=== PATIENT | male | born 1960 | race Caucasian/White ===

== ENCOUNTER 2019-05-24 09:09 | Day surgery (SDC) | payer MEDICAID, SELFPAY ==
--- NOTE | 2019-05-24 06:49 | W.COLOREPORT ---
Date of service: 05/24/19 Time of Service: 10:25 Colonoscopy Report Date of procedure: 05/24/19 Pre-op diagnosis general: Colon Cancer Screening Post-op diagnosis procedure note: other (polyps x 5) Procedure: Colonoscopy with polypectomy Surgeon: Rosmery George Anesthesia proc note operative: other (General/ ASA 2/ Shauna Hernandez CRNA ) Estimated blood loss (mL): 5 Pathology: other (Ascending colon polyps x3, descending polyps x2) Complications: None Disposition: other (General/ ASA /) Indications: 58 y/o male with history of HTN and sleep apnea presents for his first colonoscopy screening pre-op. He denies a family history of colon cancer, however reports that his father had a portion of his colon removed. He denies any changes in bowel habits including bloody or black tarry stools, abdominal pain, diarrhea or constipation. He has been working with an herbalist and has been recently making changes in his diet eliminating several types of food to include: red meat, dairy, shellfish, fruits and juices. He has been also mainly drinking water along with a an herbal tea which was made by his herbalist. He denies constitutional symptoms. Risks, benefits and complications have been reviewed. Complications include but are not limited to bleeding, pain, perforation, missed small lesion/polyp, sore throat, aspiration and adverse reaction to the medications. Questions were entertained and answered to their satisfaction and they wished to proceed. No guarantees were given or implied. Prep: Miralax/Dulcolax Procedure Start Time: 10:25 Procedure End Time: 11:00 Retraction Time: 29 minutes Findings: 3 sessile polyps < 1cm 1 sessile polyp >1 cm 1 pedunculated polyp >1 cm Procedure Description: After informed consent was obtained the patient was taken to the procedure room and placed in a left decubitous position. Monitors were applied and a time out was done. The patients name, date of , procedure, allergies to medications and metal in their body was reviewed. The patient was then sedated. Once sedated and comfortable a rectal exam was done. External exam was normal. Internal exam revealed a normal sphincter tone and no palpable masses. The prostate felt smooth. The scope was then introduced and retro-flexed. No internal hemorrhoids were identified. The scope was then advanced to the cecum without difficulty. The TI and appendiceal orifice were identified. The prep was adequate. The scope was then slowly retracted over 29 minutes back into the rectum. Polyps were removed with cold forceps in the ascending colon x2 and descending colon x1. Polyps were removed with a hot snare in the ascending colon and descending colon. There were right sided diverticula noted. The scope was removed and the patient was woken up and taken back to Same day surgery in stable condition. The patient tolerated the procedure well and there were no immediate complications. Follow up: The patient should follow up in 1-3 years unless they develop changes in bowel habits or other new gastrointestinal complaints.
--- NOTE | 2019-05-24 06:50 | W.PM.DSUDISC ---
Discharge Plan Disposition Patient Disposition: HOME Condition: Good Discharge Details Reason For Visit: SCREENING Attending Provider: Rosmery George Primary Care Provider: Carina Nettles Home Meds and New Rx's Prescriptions: Continued amlodipine 5 mg tablet 5 mg PO DAILY RF: 0 Discontinued polyethylene glycol 3350 17 gram/dose powder 238 g PO ONCE Qty: 238 RF: 0 bisacodyl [Dulcolax (bisacodyl)] 5 mg tablet,delayed release (DR/EC) 5 mg PO ONCE Qty: 4 RF: 0 Discharge Instructions Instructions: Colorectal Polyps (GEN), Diverticulosis (GEN) Additional Instructions: Findings: 5 polyps Divertculosis Follow up: 1-3 years Please call if you develop: fevers >101.5 Nausea or Vomiting Abdominal pain that is not transient DAY SURGERY UNIT POST ENDOSCOPY INSTRUCTIONS 1. Because there will be medication in your system for the next 24 hours, you may feel a little sleepy. Your coordination will be affected. Therefore: a. Do not drive or operate dangerous equipment for 24 hours. b. Do not drink alcohol beverages for 24 hours (not even beer). c. Plan to go home and rest for the day. 2. Generally there are no restrictions on your activity after a day or so has gone by, but you may feel a bit fatigued for a few days. 3 After you arrive home you may have a light meal and return to a normal diet as you can tolerate it without feeling sick to your stomach. 4. After surgery, you may feel pain or discomfort. This should be only transient, but if it persists please contact your doctor. 5. If there are any questions regarding the findings of your procedure, please feel free to contact your doctor. 6. If you are unable to contact your doctor with a problem, contact the hospital at [phone]. 7. Continue all your regular medications unless directed otherwise. I understand the above instructions and have no questions. Signature of Patient or Responsible Adult Escort Date/Time Name of Responsible Adult Escort Signature of Nurse Date/Time Activity:: Activity as Tolerated Diet:: High Fiber diet Discharge Orders Discharge Orders: Discharge Order (Routine); Ordered 05/24/19 Ordered By: Rosmery George DS: Diagnosis Discharge Diagnosis (1) Diverticula of colon: Status: Acute (2) Colorectal polyps: Status: Acute
[2019-05-24 09:24] VITALS: BP 125/94; PULSE 84; RESP 16; TEMP 36; O2SAT 94
[2019-05-24] MEDS: Lactated Ringers 1,000 ML 80 ML IV (09:52)
--- NOTE | 2019-05-24 09:57 | HOME_ITS ---
Home Ventilator Equipment Home care company Reason: Obstructive Sleep Apnea Make: ResMed Model: REMStar Mask type: Nasal mask Mask size: Mode: CPAP Settings: 8.0 Oxygen bleed in (lpm): 0 Condition: Fair Date last checked: 05/24/19 Year of last sleep study: Compliance Daily Comments: Mask needs to be replaced.
--- NOTE | 2019-05-24 10:34 | BOWEL_PTH ---
PATIENT: Nabil Villeda LOC: [facility] U#:[id number] AGE/SX: 58/M ROOM: RE05/24/[address]: Rosmery George MD : 1960 BED: DIS: 05/24/2019 SPEC #: [id number] RECD: 05/24/19 12:40 STATUS: FRANSISCO REQ #: [id number] LÁZARO: 05/24/19 10:[address]: Rosmery George DEPT: Surgical Specimen RECD BY: Lauren Blood ENTERED: 05/24/19 12:44 SP TYPE: Bowel OTHR DR: Carina Hartman Tissues: 1 - BIOPSY BOWEL 2 - BIOPSY BOWEL 3 - BIOPSY BOWEL 4 - BIOPSY BOWEL Procedures: GROSS AND MICRO LEVEL 4 Comments: [id number]
[2019-05-24 11:34] VITALS: BP 123/83; PULSE 68; RESP 20; TEMP 36.2; O2SAT 94
== END 2019-05-24 12:00 | disposition home or self-care (01) ==
LOC: SUR 09:09
PROVIDERS: PCP Nurse Practitioner Family; Visit Provider Surgery
PROC: 0DJD8ZZ Inspection of Lower Intestinal Tract, Via Natural or Artificial Opening Endoscopic (ICD-10-PCS; CPT 45378; principal; 2019-05-24 10:15)
DX: Z12.11 Encounter for screening for malignant neoplasm of colon (principal); D12.2 Benign neoplasm of ascending colon; D12.4 Benign neoplasm of descending colon; K57.30 Diverticulosis of large intestine without perforation or abscess without bleeding
CPT/HCPCS: 45385; 45380; 88305; J2001

== ENCOUNTER 2022-05-01 08:49 | Day surgery (SDC) | payer MEDICAID, SELFPAY ==
--- NOTE | 2022-04-30 19:58 | W.PM.DSUDISC ---
Date of service: 05/01/22 Time of Service: 11:31 Discharge Plan Disposition Patient Disposition: Home Condition: Good Discharge Details Reason For Visit: Colonoscopy Attending Provider: Tesfaye Zarate Primary Care Provider: Carina Hartman Home Meds and New Rx's Prescriptions: Continued amlodipine 5 mg tablet 5 mg PO DAILY Discontinued polyethylene glycol 3350 17 gram/dose powder 238 g PO ONCE Qty: 238 0RF Rx Instructions: take per colonoscopy instructions bisacodyl [Dulcolax (bisacodyl)] 5 mg tablet,delayed release (DR/EC) 5 mg PO ONCE Qty: 4 0RF Rx Instructions: take per colonoscopy instructions Discharge Instructions Instructions: Colorectal Polyps (GEN), Diverticulosis Diet (GEN), Diverticulosis (GEN) Additional Instructions: Nabil, we were able to complete your colonoscopy today without any difficulty. The quality of your preparation was excellent. I did find 1 polyp. I removed this completely. I will be in touch when I have the results of the pathology report. You also had some diverticulosis. We have provided some information here regarding general management of that. 1. If tolerated, consume a soft, low fiber diet for 1-2 days. 2. Do not drive, drink alcohol, operate machinery, make critical decisions, or do activities that require coordination or balance for 24 hours. 3. Because air was put into your colon during the procedure, expelling air from your rectum (passing gas or farting) is normal. 4. You may not have a bowel movement for 1-3 days because of the colonoscopy prep. This is normal. 5. Go directly to the emergency room if you notice any of the following: Develop chills (warm to touch), or if you have a thermometer and your temperature is above 101 Difficulty breathing or difficultly swallowing Persistent vomiting Severe abdominal pain, other than gas cramps Severe chest pain Black, tarry stools Any bleeding ? exceeding one tablespoon 6. Call your physician if the site where your intravenous was started becomes red, swollen, painful, and warm to touch. 7. Your physician has reviewed your pre-procedure medications. Please continue to take those medications as previously ordered. You will be given specific information/education regarding any changes to your medications before leaving. Activity:: Activity as Tolerated Diet:: As Tolerated Discharge Orders Discharge Orders: Discharge Order (Routine); Ordered 04/30/22 Ordered By: Tesfaye Zarate DS: Diagnosis Discharge Diagnosis (1) Screening for colon cancer: Status: Acute Asessment and Plan: Follow-up on polypectomy results
--- NOTE | 2022-04-30 19:59 | W.COLOREPORT ---
Date of service: 05/01/22 Time of Service: 11:33 Colonoscopy Report Date of procedure: 05/01/22 Pre-op diagnosis general: Screening colonoscopy Post-op diagnosis procedure note: other (Diverticulosis, colon polyp) Procedure: Colonoscopy with polypectomy Surgeon: Tesfaye Zarate Anesthesia Type: General:No Airway Estimated blood loss (mL): 10 Pathology: other (Colon polyp at 80 cm) Complications: None Disposition: same day Indications: Nabil is a 61-year-old male following up for his second screening colonoscopy Prep: Miralax/Dulcolax Procedure Start Time: 11:04 Procedure End Time: 11:19 Retraction Time: 10 Findings: Mild diverticulosis, colon polyp at 80 cm Procedure Description: After the induction of monitored anesthetic care, and with the patient in left lateral decubitus position, I began by performing an external anorectal exam.? Perineum and skin were normal, as was the anal verge.? There was no evidence of external hemorrhoids.? Next, I performed a digital rectal exam.? I did not appreciate any abnormal findings.? Next, I advanced a colonoscope into the rectal vault.? I performed retroflexion.? This appeared normal to me.? Using insufflation, I then advanced the colonoscope beyond the rectal folds and into the sigmoid colon before advancing towards the cecum.? The quality of the prep was excellent.? The scope was noted to be in the cecum by identification of the ileocecal valve and appendiceal orifice.? I then began withdrawing the colonoscope using repeated irrigation as necessary for full evaluation of the colonic mucosa. ?Once the scope was withdrawn to the level of the rectum, great care was taken to examine portions of the rectal folds.?Around 80 cm from the anal verge I identified a 0.5 cm polyp. ?It appeared sessile in character. ?I was able to remove this with a cold forcep polypectomy. ?I examined the site, and there was minimal bleeding. ?Once this was completed, I continued to withdraw the scope and examine the remainder of the colonic mucosa. Finally, the scope was withdrawn and the patient was brought to the same-day surgery recovery unit as the anesthetic wore off. ?The findings and instructions were shared with the patient prior to discharge.
[2022-05-01 09:07] VITALS: BP 158/114; PULSE 91; RESP 18; TEMP 36.5; O2SAT 97
[2022-05-01] MEDS: Lactated Ringers 1,000 ML 80 ML IV (10:00)
--- NOTE | 2022-05-01 10:13 | W.ANESPRE ---
General Info Date of Service Date Performed: 05/02/22 Height: 6 ft 2 in Weight: 118.1 kg Body Mass Index (BMI): 33.4 Surgical Procedure: Operation Date: 05/01/22 11:05 Proposed Procedure Side Surgeon p Colonoscopy possible Polypectomy Tesfaye Zarate MD Meds Allergies and Home Medications Allergies Allergy/AdvReac Type Severity Reaction Status Date / Time No Known Allergies Allergy Verified 05/01/22 09:22 Home Medication Medication Instructions Recorded amlodipine 5 mg tablet 5 mg PO DAILY 03/24/19 Current Visit Medications: Current Medications Generic Name Dose Route Start Last Admin Trade Name Freq PRN Reason Stop Dose Admin Hyoscyamine Sulfate 0.125 mg 04/30/22 20:00 Hyoscyamine 0.125 Mg Sl/Oral/Chew SL PRN PRN Ringer's Solution 1,000 mls @ 80 mls/hr 05/01/22 06:00 05/01/22 10:00 IV 05/30/22 23:59 80 mls/hr INFUSION ZHANNA Administration IV Miscellaneous Supplies 1 each 05/01/22 06:00 Iv Access IV 05/30/22 23:59 DIRECTED ZHANNA Ondansetron HCl 4 mg 04/30/22 20:00 Ondansetron 4 Mg/2 Ml Vial IVP Q4H PRN PRN Nausea / Vomiting Sodium Chloride 0 ml 05/01/22 06:00 Normal Saline Flush 10 Ml Syr IV 05/30/22 23:59 PRN PRN Sodium Chloride 0 ml 05/01/22 06:00 Normal Saline 10 Ml Vial IJ 05/30/22 23:59 DIRECTED PRN Sterile Water 0 ml 05/01/22 06:00 Water,Injection,Sterile 10 Ml Vial IJ 05/30/22 23:59 DIRECTED PRN PFSH Active Problems Active Problems: Problem Status Onset Code Chronic GERD K21.9 Elevated fasting lipid profile E78.5 Adenomatous colon polyp D12.6 Villous adenoma of left colon D37.4 Screening for colon cancer Z12.11 Colorectal polyps K63.5 Diverticula of colon K57.30 Medical History Medical History ADHD Detached retina, right Elevated PSA HTN (hypertension) Puckering of macula Sleep apnea in adult Surgical History Surgical History History of eye surgery S/P colonoscopy (~05/24/19) Tobacco Smoking/Tobacco Use Status: Never Alcohol Alcohol Intake: current Alcohol intake frequency: 0-2 drinks per day Alcohol type: beer Substance Use Substance use: Never Substance use type: does not use Vital Signs and Lab Results Vital Signs Most Recent Vital Signs in EMR: Most Recent Vital Signs Temp Pulse Resp BP Pulse Ox 36.5 C 91 H 18 158/114 H 97 05/01/22 09:07 05/01/22 09:07 05/01/22 09:07 05/01/22 09:07 05/01/22 09:07 Lab Results Blood Type / Crossmatch: No Data to Display Complete Blood Count: No Data to Display Complete Metabolic Panel: No Data to Display Liver Function Panel: No Data to Display Coagulation Panel: No Data to Display Cardiac Panel: No Data to Display Arterial Blood Gas: No Data to Display Venous Blood Gas: No Data to Display Pancreas Panel: No Data to Display Thyroid Panel: No Data to Display Infectious Disease: No Data to Display Blood Cultures: No Data to Display Toxicology Panel: No Data to Display Anesthesia Assessment and Plan Anesthesia History Personal History: No History of Anesthesia Complications Family History: No Family History of Anesthesia Complications Exercise Tolerance Exercise Tolerance: Metabolic Equivalents>4 Cardiac & Pulmonary Exam Cardiac Exam: Normal S1/S2 Heart Sounds Pulmonary Exam: Clear Bilateral Breath Sounds Implantable Cardiac Device Does patient have a Pacemaker or an ICD?: No Airway Exam Known Difficult Airway: No Mallampati Class: 3 Mouth Opening: Normal (> 3cm) Thyromental Distance: Greater than 3 cm Neck Range of Motion: Full ROM Neck Circumference: Normal Teeth Condition: Normal Dentition ASA Classification ASA Score: ASA 2 Emergency Case?: No NPO Status NPO Status: NPO Clears >2 hours, Solids >8 hours Anesthesia Plan Resuscitation Status: Full Code Anesthesia Technique: General Anesthesia Airway Planned: Natural Airway Monitors Used: Standard Monitors
[2022-05-01 10:49] VITALS: BMI 33.4
--- NOTE | 2022-05-01 11:10 | BOWEL_PTH ---
PATIENT: Nabil Villeda LOC: [facility] U#:[id number] AGE/SX: 61/M ROOM: RE05/01/[address]: Tesfaye Zarate MD : 1960 BED: DIS: 05/01/2022 SPEC #: [id number] RECD: 05/01/22 12:35 STATUS: FRANSISCO REQ #: [id number] LÁZARO: 05/01/22 11:[address]: Tesfaye Zarate DEPT: Surgical Specimen RECD BY: Lauren Blood ENTERED: 05/01/22 12:36 SP TYPE: Bowel OTHR DR: Carina Hartman Tissues: 1 - BIOPSY BOWEL Procedures: GROSS AND MICRO LEVEL 4 Comments: [id number]
[2022-05-01 11:26] VITALS: BP 92/60; PULSE 87; RESP 16; TEMP 37.1; O2SAT 92
[2022-05-01 11:50] VITALS: BP 125/79; PULSE 87; RESP 16; TEMP 36.7; O2SAT 94
--- NOTE | 2022-05-03 13:15 | W.ANESPOSTOP ---
Postoperative Evaluation Date, Time and Location Date Performed: 05/01/22 Time Performed: 12:00 Patient Location: Day Surgery Unit Vital Signs Most Recent Imported Vital Signs: Most Recent Vital Signs Temp Pulse Resp BP Pulse Ox 36.7 C 87 16 125/79 94 05/01/22 11:50 05/01/22 11:50 05/01/22 11:50 05/01/22 11:50 05/01/22 11:50 Pain Score Most Recent Pain Score: Most Recent Pain Score Pain Level 0 05/01/22 11:50 Assessment Mental Status: Awake (Alert & Oriented to Patient Baseline) Airway and Respiratory Function: Patent airway with normal (patient baseline) respiratory exam Cardiovascular Function: Hemodynamically Stable Hydration Status: Adequately Hydrated Nausea & Vomiting: No Nausea or Vomiting Pain: Pt. Denies Any Pain Peripheral Nerve Block: Patient did not receive a nerve block Postoperative Comments:: saw pt dos
== END 2022-05-01 13:00 | disposition home or self-care (01) ==
PROVIDERS: PCP Nurse Practitioner Family; Visit Provider Surgery
PROC: 0DJD8ZZ Inspection of Lower Intestinal Tract, Via Natural or Artificial Opening Endoscopic (ICD-10-PCS; CPT 45378; principal; 2022-05-01 11:00)
DX: Z12.11 Encounter for screening for malignant neoplasm of colon (principal); K57.30 Diverticulosis of large intestine without perforation or abscess without bleeding; D12.4 Benign neoplasm of descending colon
CPT/HCPCS: 45380; 88305